=== PATIENT | male | born 1955 | race Caucasian/White ===

== ENCOUNTER 2020-07-07 16:49 | Emergency (ER) | payer MEDICARE, BC ==
--- NOTE | 2020-07-07 17:18 | ER Document Report ---
ED Medical Screen (RME) - General Chief Complaint: Chest Pain Stated Complaint: CHEST PAIN Time Seen by Provider: 07/07/20 17:09 Primary Care Provider: GAMAL ALFREDO MD [Primary Care Provider] - Follow up as needed TRAVEL OUTSIDE OF THE [place] IN LAST 30 DAYS: No - HPI Notes: 07/07/20 17:14 64-year-old male with a history of bus-[id number] diabetes, hypertension, hyperlipidemia presents to the emergency room today for sudden onset left-sided chest pain that radiated to his left arm with numbness and left neck pain while he was eating. Denies any shortness of breath. Patient states he does have nausea but that has been the case for the last 3 weeks. Patient is a pack-a-day smoker for the last 40 years. Reports he did have an exploratory heart catheterization, they did not find anything he not have any stents. Reports his father did have a heart attack with stents as well as his mom had a heart condition. Denies any fevers or chills I have greeted and performed a rapid initial assessment of this patient. A comprehensive ED assessment and evaluation of the patient, analysis of test results and completion of the medical decision making process will be conducted by additional ED providers. PHYSICAL EXAMINATION: GENERAL: Well-appearing, well-nourished and in no acute distress. NECK: Normal range of motion CV: s1, s2 regular LUNGS: No respiratory distress Musculoskeletal: Normal range of motion NEUROLOGICAL: Normal speech, normal gait. SKIN: Warm, Dry, normal turgor, no rashes or lesions noted. The patient was evaluated during a global COVID-19 pandemic and that diagnosis was suspected/considered upon their initial presentation. Their evaluation, treatment and testing was consistent with current guidelines for patients who present with complaints or symptoms and may be related to COVID-19. - Related Data Allergies/Adverse Reactions: Cephalosporins Allergy (Verified 06/09/11 22:31) morphine [Morphine] Allergy (Verified 06/09/11 22:31) niacin [Niacin] Allergy (Verified 06/09/11 22:31) Past Medical History - Past Medical History Cardiac Medical History: Reports: Hx Hypercholesterolemia, Hx Hypertension Pulmonary Medical History: Reports: Hx COPD Past Surgical History: Reports: Hx Orthopedic Surgery, Hx Tonsillectomy - Immunizations Hx Diphtheria, Pertussis, Tetanus Vaccination: Yes Physical Exam - Vital signs Vitals: Temp Pulse Resp BP Pulse Ox 99.0 F 82 18 136/79 H 99 07/07/20 17:05 07/07/20 17:05 07/07/20 17:05 07/07/20 17:05 07/07/20 17:05 Course - Vital Signs Vital signs: Temp Pulse Resp BP Pulse Ox 99.0 F 82 18 136/79 H 99 07/07/20 17:05 07/07/20 17:05 07/07/20 17:05 07/07/20 17:05 07/07/20 17:05 Doctor's Discharge - Discharge Referrals: GAMAL ALFREDO MD [Primary Care Provider] - Follow up as needed
--- NOTE | 2020-07-07 17:46 | EKG REPORT ---
SEVERITY:- NORMAL ECG - SINUS RHYTHM : Confirmed by: Sanjeev Emerson MD 07-Jul-2020 17:45:03
[2020-07-07 17:54] LABS: ABSOLUTE BASOPHILS # (AUTO) 0.1 10^3/uL (0.0-0.2); ABSOLUTE EOSINOPHILS # (AUTO) 0.4 10^3/uL (0.0-0.6); ABSOLUTE LYMPHOCYTES (AUTO) 2.6 10^3/uL (0.5-4.7); ABSOLUTE NEUT (AUTO) 7.3 10^3/uL (1.7-8.2); BASOPHILS % (AUTO) 1.1 % (0-2); EOSINOPHILS % (AUTO) 3.9 % (0-6); HEMATOCRIT 41.1 % (37.9-51.0); HEMOGLOBIN 13.6 g/dL (13.5-17.0); LYMPHOCYTES % (AUTO) 22.7 % (13-45); MEAN CORPUSCULAR HEMOGLOBIN 29.5 pg (27.0-33.4); MEAN CORPUSCULAR HGB CONC 33.2 g/dL (32.0-36.0); MEAN CORPUSCULAR VOLUME 89 fl (80-97); MONOCYTES % (AUTO) 8.5 % (3-13); RED BLOOD COUNT 4.63 10^6/uL (4.35-5.55); RED CELL DISTRIBUTION WIDTH 14.6 % (11.5-14.0); SEGMENTED NEUTROPHILS % (AUTO) 63.8 % (42-78); TOTAL CELLS COUNTED % (AUTO) 100 %; WHITE BLOOD COUNT 11.4 10^3/uL (4.0-10.5)
[2020-07-07 18:04] LABS: ALBUMIN 4.2 g/dL (3.5-5.0); ALKALINE PHOSPHATASE 32 U/L (38-126); ANION GAP 6 (5-19); ASPARTATE AMINO TRANSFERASE 28 U/L (17-59); BILIRUBIN,DIRECT 0.2 mg/dL (0.0-0.4); BILIRUBIN,TOTAL 0.5 mg/dL (0.2-1.3); BLOOD UREA NITROGEN 15 mg/dL (7-20); CALCIUM 9.5 mg/dL (8.4-10.2); CARBON DIOXIDE 28 mmol/L (22-30); CHLORIDE 104 mmol/L (98-107); CREATINE KINASE 125 U/L (55-170); GLUCOSE 118 mg/dL (75-110); POTASSIUM 4.4 mmol/L (3.6-5.0); TOTAL PROTEIN 6.9 g/dL (6.3-8.2)
[2020-07-07 18:13] LABS: CREATINE KINASE MB 1.61 ng/mL (<4.55)
[2020-07-07 18:14] LABS: PLATELET COUNT 198 10^3/uL (150-450)
[2020-07-07 18:18] LABS: TROPONIN I < 0.012 ng/mL
--- NOTE | 2020-07-07 18:18 | RADIOLOGY REPORT (SQ) ---
EXAM DESCRIPTION: CHEST SINGLE VIEW IMAGES COMPLETED DATE/TIME: 07/07/2020 5:32 pm REASON FOR STUDY: L chest pain for 30sec at 3pm COMPARISON: 2010 EXAM PARAMETERS: NUMBER OF VIEWS: One view. TECHNIQUE: Single frontal radiographic view of the chest acquired. RADIATION DOSE: NA LIMITATIONS: None. FINDINGS: LUNGS AND PLEURA: No opacities, masses or pneumothorax. No pleural effusion. MEDIASTINUM AND HILAR STRUCTURES: No masses. Contour normal. HEART AND VASCULAR STRUCTURES: Heart normal in size. Normal vasculature. BONES: No acute findings. HARDWARE: None in the chest. OTHER: No other significant finding. IMPRESSION: NO ACUTE RADIOGRAPHIC FINDING IN THE CHEST. TECHNICAL DOCUMENTATION: JOB ID: [id number] 2010 [employer]- All Rights Reserved Reading location - IP/workstation name: [email or web address]
--- NOTE | 2020-07-07 20:59 | ER Document Report ---
ED Cardiac - General Chief Complaint: Chest Pain Stated Complaint: CHEST PAIN Time Seen by Provider: 07/07/20 17:09 Notes: Patient is a 64-year-old male who comes emergency department for chief complaint of left sided chest pain and left shoulder/arm pain. He states that he was sitting down to eat dinner when he started feeling sharp pain that radiated into his shoulder and felt like a tingling sensation in his arm. Pain also went over the top of his shoulder to his upper back. He denies shortness of breath, nausea, vomiting, difficulty breathing. He denies injury. He states that he has chronic back and neck pain and he is getting injections for this, he states that he has had pain in the same location in the past and he thinks this is related to his back. Patient states that he had a negative cardiac catheterization 10 years ago. He does have positive family history with both parents for [place] and cardiac disease, insulin-dependent diabetes, hypertension, hyperlipidemia, and he smokes. Patient denies any current symptoms or any current complaints. TRAVEL OUTSIDE OF THE [place] IN LAST 30 DAYS: No - Related Data Allergies/Adverse Reactions: Cephalosporins Allergy (Verified 06/09/11 22:31) morphine [Morphine] Allergy (Verified 06/09/11 22:31) niacin [Niacin] Allergy (Verified 06/09/11 22:31) Past Medical History - General Information source: Patient - Social History Smoking Status: Current Every Day Smoker Smoking Education Provided: Yes - <3 min Drug Abuse: None Lives with: Family Family History: CAD, Hypertension - Past Medical History Cardiac Medical History: Reports: Hx Hypercholesterolemia, Hx Hypertension Pulmonary Medical History: Reports: Hx COPD Endocrine Medical History: Reports: Hx Diabetes Mellitus Type 2 Past Surgical History: Reports: Hx Orthopedic Surgery, Hx Tonsillectomy - Immunizations Hx Diphtheria, Pertussis, Tetanus Vaccination: Yes Review of Systems - Review of Systems Constitutional: No symptoms reported EENT: No symptoms reported Cardiovascular: See HPI Respiratory: No symptoms reported Gastrointestinal: No symptoms reported Genitourinary: No symptoms reported Male Genitourinary: No symptoms reported Musculoskeletal: See HPI Skin: No symptoms reported Hematologic/Lymphatic: No symptoms reported Neurological/Psychological: No symptoms reported Physical Exam - Vital signs Vitals: Temp Pulse Resp BP Pulse Ox 99.0 F 82 18 136/79 H 99 07/07/20 17:05 07/07/20 17:05 07/07/20 17:05 07/07/20 17:05 07/07/20 17:05 - Notes Notes: GENERAL: Alert, interacts well. No acute distress. Talkative and well-appearing HEAD: Normocephalic, atraumatic. EYES: Pupils equal, round, and reactive to light. Extraocular movements intact. ENT: Oral mucosa moist, tongue midline. Oropharynx unremarkable. Airway patent. NECK: Full range of motion. Supple. Trachea midline. No lymphadenopathy. LUNGS: Clear to auscultation bilaterally, no wheezes, rales, or rhonchi. No respiratory distress. Patient with specific and notable tenderness to the left lateral pectoral muscle and cries out when this area specifically palpated. There is some mild pain with range of motion of the left arm/shoulder. Otherwise unremarkable chest exam. HEART: Regular rate and rhythm. No murmur ABDOMEN: Soft, non-tender. Non-distended. EXTREMITIES: See lungs exam. Moves all 4 extremities spontaneously. No edema, normal radial and dorsalis pedis pulses bilaterally. No cyanosis. BACK: no cervical, thoracic, lumbar midline tenderness. No saddle anesthesia, normal distal neurovascular exam. Moves all extremities in full range of motion. NEUROLOGICAL: Alert and oriented x3. Normal speech. Cranial nerves II through XII grossly intact. Strength 5/5 in all extremities. PSYCH: Normal affect, normal mood. SKIN: Warm, dry, normal turgor. No rashes or lesions noted. Course - Re-evaluation Re-evalutation: 07/07/20 21:12 Patient does have multiple risk factors, he is 64 years old, and he presents with chest pain. However patient actually has very reproducible symptoms. He has some pain with movement of the left arm and shoulder and a lot of specific pain with palpation of the left lateral pectoral muscle. Patient has sharp pain and reacts very strongly with crying out if the left pectoral muscle is palpated. EKG nonischemic, 2 troponins obtained and are negative, chest x-ray unremarkable, laboratory work-up unremarkable. On reevaluation patient continues to have no symptoms unless the area is palpated or he moves the area. I did discuss admission for chest pain rule out because of his age, risk factors, and chest pain, however patient is very aware that this is very specifically his chest wall and shoulder and he declines. He states that he just wanted to be evaluated to make sure, he does agree to follow close with his primary care provider, but he declines admission. I discussed care, expectations, follow-up, and return precautions. Patient states appreciation and agreement. Stable and well-appearing without any complaints at time of dis charge. - Vital Signs Vital signs: Temp Pulse Resp BP Pulse Ox 99.0 F 82 15 122/75 96 07/07/20 17:05 07/07/20 17:05 07/07/20 22:37 07/07/20 22:38 07/07/20 22:38 - Laboratory Results Result Diagrams: 07/07/20 17:25 07/07/20 17:25 Laboratory Results Interpreted: 07/07/20 07/07/20 17:25 17:25 WBC 11.4 H RDW 14.6 H Glucose 118 H Alkaline Phosphatase 32 L Critical Laboratory Results Reviewed: No Critical Results - Radiology Results Critical Radiology Results Reviewed: No Critical Results - EKG Interpretation by Me Additional EKG results interpreted by me: EKG shows sinus rhythm at a rate of 81, QTc 423, normal axis, no T wave i nversions or ST segment changes in consecutive leads. Machine reads as normal. Discharge - Discharge Clinical Impression: Chest wall pain Chest pain Qualifiers: Chest pain type: unspecified Qualified Code(s): R07.9 - Chest pain, unspecified Left shoulder pain Qualifiers: Chronicity: acute Qualified Code(s): M25.512 - Pain in left shoulder Condition: Stable Disposition: HOME, SELF-CARE Additional Instructions: Your tests today including EKG, chest x-ray, heart enzymes, and general laboratory studies do not show any concerning findings. Based on your exam, symptoms, and your negative work-up this pain appears to be coming from your chest wall, specifically your left pectoral muscle. Recommend heat to the area, consider [id number] anti-inflammatories, consider the provided muscle relaxer if needed. You can continue your current pain medication. Follow-up closely with your provider for additional management. Return if you worsen including severe worsening pain, difficulty breathing, vomiting, passing out, fever, or any other concerning or worsening symptoms. Prescriptions: Methocarbamol [Robaxin 500 mg Tablet] 500 mg PO QID PRN #20 tablet PRN Reason:
[2020-07-07 22:45] VITALS: BP 122/75
== END 2020-07-07 22:47 | disposition home or self-care (01) ==
LOC: ER 16:49
DX: R07.9 Chest pain, unspecified (principal); M25.512 Pain in left shoulder; F17.210 Nicotine dependence, cigarettes, uncomplicated; E78.00 Pure hypercholesterolemia, unspecified; I10 Essential (primary) hypertension; E11.9 Type 2 diabetes mellitus without complications; J44.9 Chronic obstructive pulmonary disease, unspecified; Z88.6 Allergy status to analgesic agent; Z79.4 Long term (current) use of insulin
CPT/HCPCS: 36415; 71045; 80053; 82550; 82553; 84484; 85025; 93005; 93010; 99285

== ENCOUNTER → 2020-07-10 | Outpatient (CLI) | payer MEDICARE, BC ==
--- NOTE | 2020-07-10 10:50 | RADIOLOGY REPORT (SQ) ---
EXAM DESCRIPTION: U/S ABDOMEN LIMITED W/O DOP IMAGES COMPLETED DATE/TIME: 07/10/2020 8:38 am REASON FOR STUDY: (R11.0)NAUSEA R11.0 NAUSEA COMPARISON: None. TECHNIQUE: Dynamic and static grayscale images acquired of the abdomen and recorded on PACS. Additio nal selected color Doppler and spectral images recorded. LIMITATIONS: None. FINDINGS: PANCREAS: The visualized portions of the pancreas appear normal. LIVER: Normal contour and echotexture of the liver. LIVER VASCULATURE: Normal hepatopetal directional flow in the main portal vein. GALLBLADDER: The gallbladder wall measures 2 mm in thickness. There is no cholelithiasis, sludge or pericholecystic fluid. ULTRASOUND-DETECTED CAST'S SIGN: Negative. INTRAHEPATIC DUCTS AND COMMON DUCT: The common bile duct measures 3 mm in diameter. There is no dila tation of the intrahepatic ducts. INFERIOR VENA CAVA: Not assessed. AORTA: No aneurysm. RIGHT KIDNEY: The right kidney measures 10.3 cm in length. There is no hydronephrosis. PERITONEAL AND RIGHT PLEURAL SPACE: No ascites or effusions. OTHER: No other findings. IMPRESSION: NORMAL RIGHT UPPER QUADRANT ULTRASOUND. TECHNICAL DOCUMENTATION: JOB ID: [id number] 2010 [employer]- All Rights Reserved Reading location - IP/workstation name: [email or web address]
== END ==
LOC: RAD 08:17
PROVIDERS: ATTEND Internal Medicine Gastroenterology
DX: R11.0 Nausea (principal)
CPT/HCPCS: 76705